=== PATIENT | female | born 1975 | race Caucasian/White ===

== ENCOUNTER 2024-07-16 12:10 | Emergency (ER) | payer SELFPAY ==
--- NOTE | 2024-07-16 15:48 | ER ---
Nurse's Notes [facility] Name: Abida Crawford Age: 49 yrs Sex: Female : 1975 Arrival Date: 07/16/2024 Time: 12:10 Bed 10 Private MD: Diagnosis: Right foot contusion Presentation: 07/16 12:36 Chief complaint: Patient states: Dropped heavy mirror on right foot about an hour and a jl7 half ago. 12:36 Acuity: ADELINE 4 jl7 12:36 Coronavirus screen: At this time, the client does not indicate any symptoms associated jl7 with coronavirus-19. Ebola Screen: No symptoms or risks identified at this time. Initial Sepsis Screen: Does the patient meet any 2 criteria? No. Patient's initial sepsis screen is negative. Does the patient have a suspected source of infection? No. Patient's initial sepsis screen is negative. Risk Assessment: Do you want to hurt yourself or someone else? Patient reports no desire to harm self or others. Onset of symptoms was July 16, 2024. 12:36 Method Of Arrival: Ambulatory jl7 Triage Assessment: 12:37 General: Appears in no apparent distress. uncomfortable, Behavior is calm, cooperative, jl7 appropriate for age. Pain: Complains of pain in right foot. 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 - Infectious Disease History:: Denies. - Social history:: Smoking status: Patient denies any tobacco usage or history of. Screenin:58 [facility] ED Fall Risk Assessment (Adult) History of falling in the last 3 months, jl7 including since admission No falls in past 3 months (0 pts) Confusion or Disorientation No (0 pts) Intoxicated or Sedated No (0 pts) Impaired Gait No (0 pts) Mobility Assist Device Used No (0 pt) Altered Elimination No (0 pt) Score/Fall Risk Level 0 - 2 = Low Risk Oriented to surroundings, Maintained a safe environment. Abuse screen: Denies threats or abuse. Denies injuries from another. Nutritional screening: No deficits noted. Tuberculosis screening: No symptoms or risk factors identified. Vital Signs: 12:36 BP 131 / 93; Pulse 93; Resp 17; Temp 98.5; Pulse Ox 96% ; Pain 9/10; jl7 12:36 Pain Scale: Adult jl7 ED Course: 12:15 Patient arrived in ED. mr 12:28 Hannah Silver MD is Attending Physician. sp3 12:37 Triage completed. jl7 12:37 Arm band placed on right wrist. jl7 13:58 Sinan Arboleda, RN is Primary Nurse. jl7 13:58 Patient has correct armband on for positive identification. Provided Education on: jl7 discharge. 13:58 No provider procedures requiring assistance completed. Patient did not have IV access jl7 during this emergency room visit. Administered Medications: No medications were administered Medication: 14:01 VIS not applicable for this client. jl7 Outcome: 13:22 Discharge ordered by . sp3 13:58 Discharged to home ambulatory, jl7 13:58 Condition: stable 13:58 Discharge instructions given to patient, Instructed on discharge instructions, follow up and referral plans. Demonstrated understanding of instructions, follow-up care, 14:02 Patient left the ED. jl7 Signatures: Carmen Villalobos, Reg Reg mr Sinan Arboleda, CRISTIAN RN jl7 Hannah Silver MD MD sp3 Corrections: (The following items were deleted from the chart) 12:38 12:37 PMHx: None; jl7 jl7
--- NOTE | 2024-07-16 15:49 | EDPHYS ---
Physician Documentation [facility] Name: Abida Crawford Age: 49 yrs Sex: Female : 1975 Arrival Date: 07/16/2024 Time: 12:10 Bed 10 Private MD: ED Physician Hannah Silver HPI: 07/16 13:20 This 49 yrs old Female presents to ER via Unassigned with complaints of Foot sp3 Pain. 13:20 49-year-old female with no significant past medical history presents with right foot sp3 pain after dropping a picture frame on 8 on the anterior 4 part of the foot. This occurred just prior to arrival. No breaks in the skin reported. Patient is still ambulatory. She denies prior injury. Review of systems otherwise negative.. 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 - Infectious Disease History:: Denies. - Social history:: Smoking status: Patient denies any tobacco usage or history of. ROS: 13:20 Constitutional: Negative for fever, chills, and weight loss, Eyes: Negative for injury, sp3 pain, redness, and discharge, ENT: Negative for injury, pain, and discharge, Cardiovascular: Negative for chest pain, palpitations, and edema, Respiratory: Negative for shortness of breath, cough, wheezing, and pleuritic chest pain, Abdomen/GI: Negative for abdominal pain, nausea, vomiting, diarrhea, and constipation, Back: Negative for injury and pain, Skin: Negative for injury, rash, and discoloration, Neuro: Negative for headache, weakness, numbness, tingling, and seizure, Psych: Negative for depression, anxiety, suicide ideation, homicidal ideation, and hallucinations, Allergy/Immunology: Negative for hives, rash, and allergies, Endocrine: Negative for neck swelling, polydipsia, polyuria, polyphagia, and marked weight changes, 13:20 All other systems are negative, Exam: 13:21 Constitutional: This is a well developed, well nourished patient who is awake, alert, sp3 and in no acute distress. Head/Face: Normocephalic, atraumatic. Skin: Warm, dry with normal turgor. Normal color with no rashes, no lesions, and no evidence of cellulitis. Neuro: Awake and alert, GCS 15, oriented to person, place, time, and situation. Cranial nerves II-XII grossly intact. Motor strength 5/5 in all extremities. Sensory grossly intact. Cerebellar exam normal. Normal gait. 13:21 Musculoskeletal/extremity: Pain at the base of the 2nd and 3rd metatarsals of the right foot. Normal pulse. No significant swelling noted.. Vital Signs: 12:36 BP 131 / 93; Pulse 93; Resp 17; Temp 98.5; Pulse Ox 96% ; Pain 9/10; jl7 12:36 Pain Scale: Adult jl7 MDM: 12:40 Medical Screening Exam initiated sp3 13:21 Data reviewed: vital signs, nurses notes, radiologic studies. ED course: Differential sp3 diagnosis includes contusion versus fracture of the right foot. X-ray demonstrates no abnormality. Will safely discharge patient home at this time. She declined any medications other than OTC meds for her pain control. Follow-up with orthopedics and her PCP as needed.. Administered Medications: No medications were administered Disposition Summary: 07/16/24 13:22 Discharge Ordered Notes: Location: Home sp3 Condition: Stable sp3 Diagnosis - Right foot contusion sp3 Followup: sp3 - With: Private Physician - When: Upon discharge from the Emergency Department - Reason: Continuance of care Discharge Instructions: - Discharge Summary Sheet sp3 - Foot Contusion sp3 Forms: - Work release form jl7 - Medication Reconciliation Form sp3 - Antibiotic Education sp3 - Prescription Opioid Use sp3 - Patient Portal Instructions sp3 - Leadership Thank You Letter sp3 Signatures: Sinan Arboleda RN RN jl7 Hannah Silver MD MD sp3 Corrections: (The following items were deleted from the chart) 12:38 12:37 PMHx: None; jl7 jl7
--- OUTSIDE RECORDS SUMMARY | 2024-07-16 15:50 | XMS REPORT | Continuity of Care Document ---
Author Name Unknown Address [address] [facility] [place] [address] Organization [facility] [place] Address [address] [place] [address] Care Team Providers Care Beaming Inspector Name Role Phone Jayant Attending Clinician Unavail able TXO_A_Physician Attending Clinician Unavailable [employer]EIGN [place]STLE Attending Clinician Unavailable Jayant Admitting Clinician Unavail able TXO_A_Physician Admitting Clinician Unavailable Payers Payer Name Policy Type Policy Number Effective Date Expirati on Date Source Problems Condition Name Condition Details Condition Category Status Onset Date Resolution Date Last Treatment Date Treating Clinician Comments Source Foot pain Foot Pain Problem Active 3-24 00:00: 00 [facility] Ankle pain Ankle Pain Problem Active 2-28 00:00: 00 [facility] Closed fracture of left talus Closed Fracture of Left Talus Problem Active 2-07 00:00: 00 [facility] Closed fracture of calcaneus bone of left foot Closed Fracture of Calcaneus Bone of Left Foot Problem Active 2-07 00:00: 00 [facility] Allergies, Adverse Reactions, Alerts Allergy Name Allergy Type Status Severity Reaction(s) Onset Date Inactive Date Treating Clinician Comments Source CODEINE DRUG INGREDI Active N/V 6- 00:00: 00 [facility] PENICILL IN DRUG INGREDI Active Hives 09-17 00:00: 00 [facility] SUGAR-RI OTEIN-ST ARCH DRUG Active Other-Cmnt 09-17 00:00: 00 [facility] Hydrocod one Allergy to substanc e Active [facility] Latex Allergy to substanc e Active [facility] PENICILL INS Allergy to substanc e Active [facility] SULFA (SULFONA MIDE ANTIBIOT ICS) Allergy to substanc e Active [facility] Tramadol Allergy to substanc e Active [facility] Social History Smoking Status Start Date Stop Date Source Light Tobacco Smoker [facility] Procedures Procedure Date / Time Performed Performing Clinicia n Source XR, ankle, 3 or more view 2022-07-05 00:00:00 [facility] XR, foot, 3 or more view 2022-07-05 00:00:00 [facility] XR, ankle, 3 or more view 2022-06-11 00:00:00 [facility] Foot Surgery [facility] Other [facility] Encounters Start Date/Time End Date/Time Encounter Type Admission Type Attending Clinicians Care Facility Care Department Encounter ID Source 2022-10-21 00:00:00 2022-10-21 00:00:00 Outpatient Ebonie West AO AO [id number] [facility] 2022-09-16 00:00:00 2022-09-16 00:00:00 Outpatient Ebonie West AOSM AO [id number] [facility] 2022-09-11 00:00:00 2022-09-11 00:00:00 Outpatient Ebonie West AOSM AOSM [id number] [facility] 2022-08-13 00:00:00 2022-08-13 00:00:00 Outpatient Ebonie West AOSM AOSM [id number] [facility] 2022-08-07 00:00:00 2022-08-07 00:00:00 Outpatient Ebonie West AOSM AOSM [id number] [facility] 2022-07-05 00:00:00 2022-07-05 00:00:00 Juan Bustos MD: [address] [facility], [address] [address] , Ph. [facility] [place] [facility] [place] [facility] [place] [id number] [facility] 2022-07-03 00:00:00 2022-07-03 00:00:00 Outpatient Ebonie West AOSM AOSM [id number] [facility] 2022-07-03 00:00:00 2022-07-03 00:00:00 Outpatient Ebonie West AOSM AOSM [id number] [facility] 2022-07-01 00:00:00 2022-07-01 00:00:00 Outpatient Ebonie West AOSM AOSM [id number] [facility] 2022-06-11 00:00:00 2022-06-11 00:00:00 Outpatient TXO_A_Physi lexi AOSM AOSM [id number] [facility] 2022-06-11 00:00:00 2022-06-11 00:00:00 Juan Bustos MD: [address] [facility], [address], [place] [address] , Ph. [phone] [facility] [place] [facility] [place] [facility] [place] [id number] [facility] 2022-05-29 00:00:00 2022-05-29 00:00:00 Outpatient TXO_A_Physi lexi AOSM AOSM [id number] [facility] 2022-05-21 00:00:00 2022-05-21 00:00:00 Outpatient TXO_A_Physi lexi AO AO [id number] [facility] 2022-05-21 00:00:00 2022-05-21 00:00:00 Juan Bustos MD: [address] [facility], [address], [place] [address] , Ph. [phone] [facility] [place] [facility] [place] [facility] [id number] [facility] 2022-05-20 00:00:00 2022-05-20 00:00:00 Outpatient TXO_A_Physi lexi [facility] [id number] [facility] 2019-09-18 17:01:22 2019-09-18 17:01:22 Emergency X [facility] ERT [id number] [facility]
[2024-07-16 16:06] VITALS: BP 131/93; TEMP 98.5; O2SAT 96
--- NOTE | 2024-07-16 22:20 | RAD REPORT ---
EXAM: Foot Right 3 View HISTORY: TRAUMA COMPARISON: None FINDINGS: Bones: No acute fracture identified. Alignment:No significant malalignment. Degenerative changes:None significant. Other: n/a IMPRESSION: No acute osseous abnormality.
== END 2024-07-16 14:02 | disposition home or self-care (01) ==
LOC: ER 12:10
DX: S90.31XA Contusion of right foot, initial encounter (principal)
CPT/HCPCS: 99282

== ENCOUNTER 2025-01-27 16:49 | Emergency (ER) | payer OTHER ==
--- OUTSIDE RECORDS SUMMARY | 2025-01-27 16:52 | XMS REPORT | Continuity of Care Document ---
Author Name Unknown Address [address] [facility] [place] [address] Organization [facility] [place] Address [address] [facility] [place] [address] Care Team Providers Care Ethnoarchaeology Professor Name Role Phone Jayant Attending Clinician Unavail [...] DRUG INGREDI Active N/V 6- 00:00: 00 [facility] PENICILL IN DRUG INGREDI Active Hives 09-17 00:00: 00 [facility] SUGAR-WI OTEIN-ST ARCH DRUG Active Other-Cmnt 09-17 00:00: 00 [facility] Hydrocod one Allergy to substanc e Active [...] Care Facility Care Department Encounter ID Source 2022-07-05 00:00:00 2022-07-05 00:00:00 Juan Bustos MD: [facility] [facility], [address], [place] [address] , Ph. [facility] [place] [facility] [place] [facility] [place] [id number] [facility] 2022-06-11 00:00:00 2022-06-11 00:00:00 Juan Bustos MD: [facility], [address], [place] [address] , Ph. [phone] [facility] [place] [facility] [place] [facility] [place] [id number] [facility] 2022-05-21 00:00:00 2022-05-21 00:00:00 Juan Bustos MD: [address] [facility], [address], [place] [address] , Ph. [facility] [place] [facility] [place] [facility] [place] [id number] [facility] 2019-09-18 17:01:22 2019-09-18 17:01:22 Emergency X [facility] [[email or web address] [id number] [facility]
[2025-01-27] MEDS ORDERED: METOCLOPRAMIDE 10 MG/2mL INJ ONE (17:34)
[2025-01-27] MEDS ORDERED: ASPIRIN 81 MG CHEWABLE TABLET ONE (17:35)
[2025-01-27] MEDS ORDERED: DIPHENHYDRAMINE 50 MG/ML VIAL ONE (17:35)
[2025-01-27] MEDS ORDERED: NA CHLORIDE 0.9% 1,000 ML ONE (17:35)
[2025-01-27] MEDS ORDERED: KETOROLAC 30 MG/ML INJ ONE (17:35)
[2025-01-27 17:45] LABS: Absolute Lymphocytes (CBC) 2.5 K/uL (0.7-4.9); Hematocrit 36.0 % (36.0-45.0); Hemoglobin 11.8 g/dL (12.0-15.0); MCH 30.6 pg (27.0-35.0); MCHC 32.9 g/dL (32.0-36.0); MCV 92.8 fL (80-100); MPV 8.5 fL (7.6-11.3); Nucleated RBC Absolute Count 0.0 (0-0); Nucleated Red Blood Cells % 0.0 % (0-0); RBC Red Blood Cell Count 3.87 M/uL (3.86-4.86); White Blood Count 7.50 thou/uL (4.3-10.9)
--- NOTE | 2025-01-27 17:50 | RAD REPORT ---
EXAM: CT brain without contrast HISTORY: HEADACHE COMPARISON: 10/20/2013 TECHNIQUE: Multiple contiguous axial images were obtained and a CT of the brain without contrast. Sag ittal and coronal reformats were performed. One or more of the following dose reduction techniques were used: Automated exposure control, adjust ment of the mA and/or kV according to patient size, and/or iterative reconstruction. FINDINGS: No evidence of hydrocephalus, intracranial hemorrhage, or extra-axial fluid collection. The brain is normal in morphology. No evidence of midline shift or areas of brain edema. The calvarium is intact. The visualized paranasal sinuses and mastoid air cells are essentially clear . IMPRESSION: No evidence of acute intracranial abnormality.
[2025-01-27 17:51] LABS: PT Prothrombin Time 12.2 SECONDS (10-13.0); Protime INR 1.08
[2025-01-27 18:09] LABS: ALT/SGPT 25 U/L (13-56); AST/SGOT 13 U/L (15-37); Albumin 3.3 g/dL (3.4-5.0); Albumin/Globulin Ratio 1.1 (1.1-1.8); Alkaline Phosphatase 58 U/L (45-117); Anion Gap 6.7 mEq/L (5.0-15.0); BUN Blood Urea Nitrogen 10 mg/dL (7-18); Globulin 3.0 g/dL (2.3-3.5); Glucose Level 97 mg/dL (74-106); Lipase 29 U/L (13-75); Magnesium 1.9 mg/dL (1.6-2.4); NT PRO-BNP 104 pg/mL (<125); Potassium 3.7 mEq/L (3.5-5.1)
[2025-01-27 18:10] LABS: Bilirubin Indirect, Calculated 0.2 mg/dL (0.2-0.8); Troponin High Sensitivity < 3.0 pg/mL (<58.9)
--- NOTE | 2025-01-27 18:27 | ER ---
Nurse's Notes [facility] Name: Abida Crawford Age: 50 yrs Sex: Female : 1975 Arrival Date: 01/27/2025 Time: 16:49 Bed 7 Private MD: Diagnosis: Headache;Chest pain, unspecified;Vomiting Presentation: 01/27 16:58 Chief complaint: Patient states: headache, nausea, and chest pain since 520 am, took kb4 ibuprophen this am but unable to keep it down. Coronavirus screen: At this time, unable to obtain information related to travel outside the [place] Ebola Screen: No symptoms or risks identified at this time. Initial Sepsis Screen: Does the patient meet any 2 criteria? No. Patient's initial sepsis screen is negative. Does the patient have a suspected source of infection? No. Patient's initial sepsis screen is negative. Risk Assessment: Do you want to hurt yourself or someone else? Patient reports no desire to harm self or others. Onset of symptoms was January 27, 2025 at 05:30. 16:58 Method Of Arrival: Ambulatory [facility] 16:58 Acuity: ADELINE 3 kb4 Triage Assessment: 17:02 Headache History: Other headache all over, pt states "feels like pressure" since 530 kb4 am. General: Appears in no apparent distress. uncomfortable, Behavior is calm, cooperative. Pain: Complains of pain in head Pain currently is 9 out of 10 on a pain scale. Pain began 530 am today Also complains of nausea, photophobia. Neuro: Level of Consciousness is awake, alert, obeys commands, Oriented to person, place, time, situation. CONTROL CLERK: 17:02 Not kb4 Historical: - Allergies: 17:02 Codeine; kb4 - PMHx: 17:02 HYPOGLYCEMIA; kb4 - Immunization history:: Adult Immunizations up to date. - Infectious Disease History:: Denies. - Social history:: Smoking status: Patient reports the use of cigarette tobacco products, Reported history of juuling and/or vaping. Screenin:00 [facility] ED Fall Risk Assessment (Adult) History of falling in the last 3 months, ar8 including since admission No falls in past 3 months (0 pts) Confusion or Disorientation No (0 pts) Intoxicated or Sedated No (0 pts) Impaired Gait No (0 pts) Mobility Assist Device Used No (0 pt) Altered Elimination No (0 pt) Score/Fall Risk Level 0 - 2 = Low Risk Oriented to surroundings, Maintained a safe environment. Abuse screen: Denies threats or abuse. Nutritional screening: No deficits noted. Tuberculosis screening: No symptoms or risk factors identified. Assessment: 17:29 General: Appears uncomfortable, Behavior is cooperative. Pain: Complains of pain in [place] ar8 Pain currently is 9 out of 10 on a pain scale. Neuro: Level of Consciousness is awake, alert, obeys commands, Oriented to person, place, time, situation, Reports headache that is the "worst ever", since 0500. Cardiovascular: Rhythm is sinus rhythm. Respiratory: Airway is patent Respiratory effort is even, unlabored, Respiratory pattern is regular, symmetrical. GI: Abdomen is flat, Abd is soft and non tender Reports nausea, vomiting. 17:29 : No signs and/or symptoms were reported regarding the genitourinary system. EENT: No ar8 signs and/or symptoms were reported regarding the EENT system. Vital Signs: 16:58 BP 108 / 79; Pulse 74; Resp 20; Temp 98.1; Pulse Ox 98% ; Weight 64 kg; Height 5 ft. 1 kb4 in. ; Pain 9/10; 18:00 BP 114 / 71; Pulse 69; Resp 18; Pulse Ox 100% on R/A; ar8 18:30 BP 118 / 78; Pulse 61; Resp 16; Pulse Ox 100% on R/A; ar8 16:58 Body Mass Index 26.66 (64.00 kg, 154.94 cm) kb4 16:58 Pain Scale: Adult kb4 [place] Coma Score: 17:56 Eye Response: spontaneous(4). Motor Response: obeys commands(6). Verbal Response: arianna oriented(5). Total: 15. 18:14 Eye Response: spontaneous(4). Motor Response: obeys commands(6). Verbal Response: arianna oriented(5). Total: 15. ED Course: 16:53 Patient arrived in ED. al6 17:02 Triage completed. kb4 17:06 Jon Leong MD is Attending Physician. arianna 17:22 Jeffry Swenson RN is Primary Nurse. ar8 17:25 Bed in low position. Call light in reach. Side rails up X2. ar8 17:25 Provided Education on: plan of care. ar8 17:25 Client placed on continuous cardiac and pulse oximetry monitoring. NIBP monitoring ar8 applied. 17:29 No provider procedures requiring assistance completed. Inserted saline lock: 20 gauge ar8 in right antecubital area, using aseptic technique. Blood collected. Flushed with 10 mL NS. 17:44 CT Head Brain wo Cont In Process Unspecified. EDMS 17:50 EKG done, by ED staff, reviewed by Jon Leong MD. ar8 17:55 Basic Metabolic Panel Sent. jp5 17:55 LFT's Sent. jp5 17:55 Magnesium Sent. jp5 17:55 NT PRO-BNP Sent. jp5 17:55 Troponin HS Sent. jp5 18:26 Ronny Deutsch MD is Referral Physician. arianna 18:26 Catracho Ruiz MD is Referral Physician. arianna 18:41 XRAY Chest (1 view) In Process Unspecified. EDMS 18:43 IV discontinued, intact, bleeding controlled, No redness/swelling at site. Pressure ar8 dressing applied. Administered Medications: 17:50 Drug: Ketorolac IVP 30 mg IVP once Route: IVP; Site: right antecubital; ar8 18:20 Follow up: Response: No adverse reaction; Marked relief of symptoms; Pain is decreased ar8 17:52 Drug: metoCLOPramide IVP 10 mg IVP once; over 1 to 2 minutes Route: IVP; Site: right ar8 antecubital; 18:43 Follow up: Response: No adverse reaction; Marked relief of symptoms; Nausea is decreasedar8 17:55 Drug: NS 0.9% IV 1000 ml IV at 1000 ml once; to be given as a bolus over 60 minutes jp5 Route: IV; Rate: 1000 ml; Site: right antecubital; 18:43 Follow up: Response: No adverse reaction; Marked relief of symptoms; IV Status: ar8 Completed infusion; IV Intake: 1000ml 17:56 Drug: diphenhydrAMINE IVP 50 mg IVP once Route: IVP; Site: right antecubital; jp5 18:43 Follow up: Response: No adverse reaction; Marked relief of symptoms ar8 17:57 Drug: Aspirin PO Chewable Tablet 81 mg PO once Route: PO; ar8 18:43 Follow up: Response: No adverse reaction ar8 Medication: 18:00 VIS not applicable for this client. ar8 Intake: 18:43 IV: 1000ml; Total: 1000ml. ar8 Outcome: 18:26 Discharge ordered by . arianna 18:43 Discharged to home via wheelchair, ar8 18:43 Condition: stable 18:43 Discharge instructions given to patient, significant other, Instructed on discharge instructions, follow up and referral plans. medication usage, Demonstrated understanding of instructions, follow-up care, medications, Prescriptions given X 2, 18:45 Patient left the ED. ll1 Signatures: Dispatcher [employer] [facility] Jon Leong MD MD cha Lewis, Lynsay RN RN ll1 Renetta Patterson RN RN jp5 Sandra Mitchell6 Virgie Gonzales RN RN kb4 Jeffry Swenson RN RN ar8
--- NOTE | 2025-01-27 18:27 | EDPHYS ---
Physician Documentation [facility] Name: Abida Crawford Age: 50 yrs Sex: Female : 1975 Arrival Date: 01/27/2025 Time: 16:49 Bed 7 Private MD: ED Physician Jon Leong HPI: 01/27 17:53 This 50 yrs old Female presents to ER via Ambulatory with complaints of arianna Headache, Chest Tightness, Nausea. 17:53 The patient complains of pain to the top of head, forehead, left frontal area, left arianna side of the back of head, right frontal area and right side of the back of head. The patient describes the headache as aching. Onset: The symptoms/episode began/occurred 1 day(s) ago. Associated signs and symptoms: Pertinent positives: nausea, vomiting. Severity of symptoms: At its worst the pain was mild, moderate, in the emergency department the pain is unchanged. Headache History: The patient has had previous headaches and this one is similar to previous episodes. The symptoms are alleviated by nothing. the symptoms are aggravated by nothing. The patient has not experienced similar symptoms in the past. 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 - Infectious Disease History:: Denies. - Social history:: Smoking status: Patient reports the use of cigarette tobacco products, Reported history of juuling and/or vaping. ROS: 17:54 Constitutional: Negative for fever, chills, and weight loss, Eyes: Negative for injury, arianna pain, redness, and discharge, ENT: Negative for injury, pain, and discharge, Neck: Negative for injury, pain, and swelling, Respiratory: Negative for shortness of breath, cough, wheezing, and pleuritic chest pain, Back: Negative for injury and pain, : Negative for injury, bleeding, discharge, and swelling, MS/Extremity: Negative for injury and deformity, Skin: Negative for injury, rash, and discoloration, Psych: Negative for depression, anxiety, suicide ideation, homicidal ideation, and hallucinations, Allergy/Immunology: Negative for hives, rash, and allergies, Endocrine: Negative for neck swelling, polydipsia, polyuria, polyphagia, and marked weight changes, 17:54 Cardiovascular: Positive for chest pain, 17:54 Abdomen/GI: Positive for abdominal pain, nausea and vomiting, 17:54 Neuro: Positive for headache, Exam: 17:54 Constitutional: This is a well developed, well nourished patient who is awake, alert, arianna and in no acute distress. Head/Face: Normocephalic, atraumatic. Eyes: Pupils equal round and reactive to light, extra-ocular motions intact. Lids and lashes normal. Conjunctiva and sclera are non-icteric and not injected. Cornea within normal limits. Periorbital areas with no swelling, redness, or edema. ENT: Nares patent. No nasal discharge, no septal abnormalities noted. Tympanic membranes are normal and external auditory canals are clear. Oropharynx with no redness, swelling, or masses, exudates, or evidence of obstruction, uvula midline. Mucous membranes moist. Neck: Trachea midline, no thyromegaly or masses palpated, and no cervical lymphadenopathy. Supple, full range of motion without nuchal rigidity, or vertebral point tenderness. No Meningismus. Chest/axilla: Normal chest wall appearance and motion. Nontender with no deformity. No lesions are appreciated. Cardiovascular: Regular rate and rhythm with a normal S1 and S2. No gallops, murmurs, or rubs. Normal PMI, no JVD. No pulse deficits. Respiratory: Lungs have equal breath sounds bilaterally, clear to auscultation and percussion. No rales, rhonchi or wheezes noted. No increased work of breathing, no retractions or nasal flaring. Abdomen/GI: Soft, non-tender, with normal bowel sounds. No distension or tympany. No guarding or rebound. No evidence of tenderness throughout. Back: No spinal tenderness. No costovertebral tenderness. Full range of motion. Skin: Warm, dry with normal turgor. Normal color with no rashes, no lesions, and no evidence of cellulitis. MS/ Extremity: Pulses equal, no cyanosis. Neurovascular intact. Full, normal range of motion., bilateral aka Neuro: Awake and alert, GCS 15, oriented to person, place, time, and situation. Cranial nerves II-XII grossly intact. Motor strength 5/5 in all extremities. Sensory grossly intact. Cerebellar exam normal. Normal gait. Psych: Awake, alert, with orientation to person, place and time. Behavior, mood, and affect are within normal limits. 17:54 ECG was reviewed by the Attending Physician. 18:00 ECG was reviewed by the Attending Physician. arianna 18:00 Musculoskeletal/extremity: DVT Exam: No signs of deep vein thrombosis. no pain, no swelling, no tenderness, negative Homans' sign noted on exam, no appreciated bluish discoloration, no erythema, no increased warmth, Vital Signs: 16:58 BP 108 / 79; Pulse 74; Resp 20; Temp 98.1; Pulse Ox 98% ; Weight 64 kg; Height 5 ft. 1 kb4 in. ; Pain 9/10; 18:00 BP 114 / 71; Pulse 69; Resp 18; Pulse Ox 100% on R/A; ar8 18:30 BP 118 / 78; Pulse 61; Resp 16; Pulse Ox 100% on R/A; ar8 16:58 Body Mass Index 26.66 (64.00 kg, 154.94 cm) kb4 16:58 Pain Scale: Adult kb4 Sandra Coma Score: 17:56 Eye Response: spontaneous(4). Motor Response: obeys commands(6). Verbal Response: arianna oriented(5). Total: 15. 18:14 Eye Response: spontaneous(4). Motor Response: obeys commands(6). Verbal Response: arianna oriented(5). Total: 15. MDM: 17:06 Medical Screening Exam initiated arianna 17:56 Differential diagnosis: cluster headache, abnormal EKG, acute myocardial infarction, arianna acute pericarditis, anxiety, hypoglycemia, hyponatremia, migraine, otitis, sinusitis, tension headache, trigeminal neuralgia, uremia, vasomotor headache. HEART Score: History: Slightly Suspicious (0), ECG: Normal (0), Age: > 45 and < 65 years (1), Risk Factors: No Risk Factors Known (0), Troponin: < or = 1 x Normal Limit (0). The patient was given aspirin in the Emergency Department. HEIDI Risk Score: 1 - Recent [<24hrs] Severe Angina, TOTAL SCORE = 1. Data reviewed: vital signs, nurses notes, lab test result(s), EKG, radiologic studies, CT scan, plain films. Consideration of Admission/Observation Escalation of care including admission/observation considered. I considered the following discharge prescriptions or medication management in the emergency department Medications were administered in the Emergency Department. See MAR. Independent interpretation of the following test(s) in the Emergency Department EKG: See my EKG interpretation above. Test considered but Not performed: Ultrasound no 2 d echo. 01/27 17:19 Order name: Basic Metabolic Panel; Complete [facility]: [facility] 17:19 Order name: CBC with Diff; Complete Time: 17:52 [facility] 01/27 17:19 Order name: LFT's; Complete Time: 18:14 [facility] 01/27 17:19 Order name: Magnesium; Complete Time: 18:14 [facility] 01/27 17:19 Order name: NT PRO-BNP; Complete Time: 18:14 [facility] 01/27 17:19 Order name: PT-INR; Complete Time: 17:52 [facility] 01/27 17:19 Order name: Troponin HS; Complete Time: 18:14 [facility] 01/27 17:19 Order name: Lipase; Complete Time: 18:14 [facility] 01/27 17:19 Order name: XRAY Chest (1 view) 01/27 17:19 Order name: CT Head Brain wo Cont; Complete Time: 17:52 [facility] 01/27 17:19 Order name: Cardiac monitoring; Complete Time: 17:55 [facility] 01/27 17:19 Order name: EKG - Nurse/Tech; Complete Time: 17:55 [facility] 01/27 17:19 Order name: IV Saline Lock; Complete Time: 17:55 [facility] 01/27 17:19 Order name: Labs collected and sent; Complete Time: 17:55 [facility] 01/27 17:19 Order name: O2 Per Protocol; Complete Time: 17:55 [facility] 01/27 17:19 Order name: O2 Sat Monitoring; Complete Time: 17:55 [facility] 01/27 17:19 Order name: Oxygen: 2 liter; Complete Time: 17:56 [facility] EC:00 Rate is 54 beats/min. Rhythm is regular. QRS [place] is Normal. [place] interval is normal. QRS arianna interval is normal. QT interval is normal. No Q waves. T waves are Normal. No ST changes noted. Clinical impression: Sinus bradycardia and No evidence of ischemia. Interpreted by me. Reviewed by me. Administered Medications: 17:50 Drug: Ketorolac IVP 30 mg IVP once Route: IVP; Site: right antecubital; ar8 18:20 Follow up: Response: No adverse reaction; Marked relief of symptoms; Pain is decreased ar8 17:52 Drug: metoCLOPramide IVP 10 mg IVP once; over 1 to 2 minutes Route: IVP; Site: right ar8 antecubital; 18:43 Follow up: Response: No adverse reaction; Marked relief of symptoms; Nausea is decreasedar8 17:55 Drug: NS 0.9% IV 1000 ml IV at 1000 ml once; to be given as a bolus over 60 minutes jp5 Route: IV; Rate: 1000 ml; Site: right antecubital; 18:43 Follow up: Response: No adverse reaction; Marked relief of symptoms; IV Status: ar8 Completed infusion; IV Intake: 1000ml 17:56 Drug: diphenhydrAMINE IVP 50 mg IVP once Route: IVP; Site: right antecubital; jp5 18:43 Follow up: Response: No adverse reaction; Marked relief of symptoms ar8 17:57 Drug: Aspirin PO Chewable Tablet 81 mg PO once Route: PO; ar8 18:43 Follow up: Response: No adverse reaction ar8 Disposition Summary: 01/27/25 18:26 Discharge Ordered Notes: Location: Home arianna Problem: new arianna Symptoms: have improved arianna Condition: Stable arianna Diagnosis - Headache arianna - Chest pain, unspecified arianna - Vomiting arianna Followup: arianna - With: Private Physician - When: 2 - 3 days - Reason: Recheck today's complaints, Continuance of care, Re-evaluation by your physician Followup: arianna - With: Ronny Deutsch MD - When: 2 - 3 days - Reason: Recheck today's complaints, Re-evaluation by your physician Followup: arianna - With: Catracho Ruiz MD - When: 2 - 3 days - Reason: Recheck today's complaints, Re-evaluation by your physician Discharge Instructions: - Discharge Summary Sheet arianna - Nonspecific Chest Pain, Adult arianna - Chest Wall Pain arianna - Nonspecific Chest Pain, Adult, [id number] arianna - Aspirin and Your Heart arianna - General Headache Without Cause, [id number] arianna Forms: - Medication Reconciliation Form arianna - Antibiotic Education arianna - Prescription Opioid Use arianna - Patient Portal Instructions arianna - Leadership Thank You Letter [facility] Prescriptions: - ondansetron 4 mg Oral Tablet,disintegrating - take 1 tablet ORAL route every 6 hours as needed for nausea and vomiting; 20 arianna tablet; Refills: 0, Product Selection Permitted - Pepcid 20 mg Oral tablet - take 1 tablet ORAL route every 12 hours for 21 days; 42 tablet; Refills: 0, arianna Product Selection Permitted Signatures: Dispatcher [employer] EDMS Jon Leong MD MD cha Pena, Jailene, RN RN jp5 Virgie Gonzales, RN RN kb4 Jeffry Swenson, RN RN ar8 Corrections: (The following items were deleted from the chart) 17:20 17:19 BASIC METABOLIC PANEL+C.LAB.BRZ ordered. EDMS EDMS 17:20 17:19 CBC+H.LAB.BRZ ordered. EDMS EDMS 17:20 17:19 HEPATIC FUNCTION+C.LAB.BRZ ordered. EDMS EDMS 17:20 17:19 MAGNESIUM+C.LAB.BRZ ordered. EDMS EDMS 17:20 17:19 PROBNP+C.LAB.BRZ ordered. EDMS EDMS 17:20 17:19 PROTIME (+INR)+COAG.LAB.BRZ ordered. EDMS EDMS 17:20 17:19 Troponin High Sensitivity+C.LAB.BRZ ordered. EDMS EDMS 17:20 17:19 LIPASE+C.LAB.BRZ ordered. EDMS EDMS 17:20 17:19 UA Rfx Venancio Cult if indicated+U.LAB.BRZ ordered. EDMS EDMS 17:20 17:20 Chest Single View+RAD.RAD.BRZ ordered. EDMS EDMS 17:20 17:20 Head Brain Wo Cont+CT.RAD.BRZ ordered. EDMS EDMS
--- NOTE | 2025-01-27 18:42 | RAD REPORT ---
EXAMINATION: ONE VIEW CHEST XR CLINICAL INDICATION: CHEST PAIN TECHNIQUE: Frontal chest projection is submitted. Examination is limited by patient positioning and t echnique. COMPARISON: 10/20/2013 FINDINGS: The lungs are well inflated and clear. The heart is normal in size. No displaced fractures identified . IMPRESSION: No acute intrathoracic abnormalities.
[2025-01-27 21:04] VITALS: TEMP 98.1
[2025-01-27 21:10] VITALS: O2SAT 100
[2025-01-27 21:15] VITALS: BP 118/78
== END 2025-01-27 18:45 | disposition home or self-care (01) ==
LOC: ER 16:49
DX: R51.9 Headache, unspecified (principal); R07.89 Other chest pain; R11.10 Vomiting, unspecified; Z72.0 Tobacco use
CPT/HCPCS: 96361; 93005; 85025; 80048; 36415; 83735; 85610; 80076; 84484; 83690; 83880; 70450; 71045; 96375; 96374; 99285; J1885; J2765; J1200; J7030